=== PATIENT | female | born 1985 | race Caucasian/White ===

== ENCOUNTER 2016-09-10 16:32 | Emergency (ER) | payer MEDICAID ==
[~2016-09-10] VITALS: Ht 170.2 cm; Wt 95.0 kg
[~2016-09-10 16:32] MED LIST: BCP DAILY; HYDR-3533 PO
[2016-09-10 16:39] VITALS: BP 133/66; PULSE 65; RESP 20; TEMP 97.8; O2SAT 99
[2016-09-10] MEDS ORDERED: SODIUM CHLOR 0.9% 1000 ML INJ 1,000 ML IV SCH (16:46)
--- NOTE | 2016-09-10 16:53 | PD ---
HPI Chief Complaint: Abdominal Pain Time Seen by Provider: 16:42 Travel History International Travel<30 days: No Contact w/Intl Traveler<30days: No Traveled to known affect area: No History of Present Illness HPI PATIENT C/O NONRADIATING, RUQ AREA PAIN, SHARP, INTERMITTENT, 8/10, ASSOC WITH NAUSEA BUT NO VOMITING/D/FEVER AT THIS POINT......STATES HAS HAD PREVIOUS H/O PANCREATITIS FROM GALLSTONES, BUT PATIENT STATES STILL HAS HER GB. PFSH Past Medical History Cancer: No Cardiovascular Problems: No Diminished Hearing: No Endocrine: No Genitourinary: No Immune Disorder: No Musculoskeletal: No Neurologic: No Reproductive: No Respiratory: No ?: Not LMP: 08/2016 Past Surgical History Abdominal Surgery: No Cardiac Surgery: No Ear Surgery: No Endocrine Surgery: No Eye Surgery: No Genitourinary Surgery: No Gynecologic Surgery: No Oral Surgery: No Tonsillectomy: Yes Other Surgery: Yes Social History Alcohol Use: No Tobacco Use: Yes (4-5 cigs/day) Substance Use: No Allergies-Medications (Allergen,Severity, Reaction): Coded Allergies: No Known Allergies (Verified , 09/10/16) Reported Meds & Prescriptions Reported Meds & Active Scripts Active Zofran Odt (Ondansetron Odt) 4 Mg Tab 4 Mg SL Q6HR PRN Ultram (Tramadol HCl) 50 Mg Tab 50 Mg PO Q4H PRN Review of Systems Except as stated in HPI: all other systems reviewed are Neg Gastrointestinal: Positive: Nausea, Abdominal Pain Physical Exam Narrative GENERAL: SKIN: Warm and dry. HEAD: Atraumatic. Normocephalic. EYES: Pupils equal and round. No scleral icterus. No injection or drainage. ENT: No nasal bleeding or discharge. Mucous membranes pink and moist. NECK: Trachea midline. No JVD. CARDIOVASCULAR: Regular rate and rhythm. RESPIRATORY: No accessory muscle use. Clear to auscultation. Breath sounds equal bilaterally. GASTROINTESTINAL: Abdomen soft, MILD RUQ TTP, nondistended. MUSCULOSKELETAL: Extremities without clubbing, cyanosis, or edema. No obvious deformities. NEUROLOGICAL: Awake and alert. No obvious cranial nerve deficits. Motor grossly within normal limits. Five out of 5 muscle strength in the arms and legs. Normal speech. PSYCHIATRIC: Appropriate mood and affect; insight and judgment normal. Data Data Last Documented VS Vital Signs Date Time Temp Pulse Resp B/P Pulse Ox O2 Delivery O2 Flow Rate FiO2 09/10/16 17:24 57 16 118/69 96 09/10/16 16:39 97.8 Orders Complete Blood Count With Diff (09/10/16 16:46) Comprehensive Metabolic Panel (09/10/16 16:46) Lipase (09/10/16 16:46) Urinalysis - C+S If Indicated (09/10/16 16:46) Ct Abd/Pel W/O Iv Contrast (09/10/16 16:46) Iv Access Insert/Monitor (09/10/16 16:46) Ecg Monitoring (09/10/16 16:46) Oximetry (09/10/16 16:46) NPO (09/10/16 16:46) Hydromorphone Pf Inj (Dilaudid Pf Inj) (09/10/16 17:00) Ondansetron Inj (Zofran Inj) (09/10/16 17:00) Sodium Chlor 0.9% 1000 Ml Inj (Ns 1000 M (09/10/16 16:46) Sodium Chloride 0.9% Flush (Ns Flush) (09/10/16 17:00) Ed Urine Pregnancytest Poc (09/10/16 16:46) Electrocardiogram (09/10/16 16:53) Labs Laboratory Tests Test 09/10/16 16:50 White Blood Count 8.8 TH/MM3 Red Blood Count 4.78 MIL/MM3 Hemoglobin 14.3 GM/DL Hematocrit 43.1 % Mean Corpuscular Volume 90.1 FL Mean Corpuscular Hemoglobin 29.9 PG Mean Corpuscular Hemoglobin 33.2 % Concent Red Cell Distribution Width 12.8 % Platelet Count 265 TH/MM3 Mean Platelet Volume 9.1 FL Neutrophils (%) (Auto) 56.8 % Lymphocytes (%) (Auto) 26.5 % Monocytes (%) (Auto) 13.2 % Eosinophils (%) (Auto) 2.8 % Basophils (%) (Auto) 0.7 % Neutrophils # (Auto) 5.0 TH/MM3 Lymphocytes # (Auto) 2.3 TH/MM3 Monocytes # (Auto) 1.2 TH/MM3 Eosinophils # (Auto) 0.2 TH/MM3 Basophils # (Auto) 0.1 TH/MM3 CBC Comment DIFF FINAL Differential Comment Urine Collection Type CLEAN CATCH Urine Color YELLOW Urine Turbidity CLEAR Urine pH 6.0 Urine Specific [place] 1.026 Urine Protein NEG mg/dL Urine Glucose (UA) NEG mg/dL Urine Ketones NEG mg/dL Urine Occult Blood NEG Urine Nitrite NEG Urine Bilirubin NEG Urine Leukocyte Esterase NEG Urine WBC 0-2 /hpf Urine Squamous Epithelial 6-8 /hpf Cells Urine Bacteria RARE /hpf Microscopic Urinalysis Comment CULT NOT INDICATED Urine Collection Time 16:50 Sodium Level 139 MEQ/L Potassium Level 4.0 MEQ/L Chloride Level 108 MEQ/L Carbon Dioxide Level 24.2 MEQ/L Anion Gap 7 MEQ/L Blood Urea Nitrogen 11 MG/DL Creatinine 0.70 MG/DL Estimat Glomerular Filtration 98 ML/MIN Rate Random Glucose 84 MG/DL Calcium Level 8.5 MG/DL Total Bilirubin 0.3 MG/DL Aspartate Amino Transf 12 U/L (AST/SGOT) Alanine Aminotransferase 19 U/L (ALT/SGPT) Alkaline Phosphatase 74 U/L Total Protein 6.8 GM/DL Albumin 3.4 GM/DL Lipase 178 U/L [facility] Medical Decision Making Medical Screen Exam Complete: Yes Emergency Medical Condition: Yes Medical Record Reviewed: Yes Interpretation(s) NSR 58, NORMAL INTERVALS, NO STEMI PATTERN Differential Diagnosis BILIARY COLIC V CHOLECYSTITIS V PANCREATITIS V GASTRITIS V ATYPICAL [place] Narrative Course PATIENT WAS EVALUATED AND REACHED PAIN FREE STATUS WHILE AWAITING CT RESULTS...NL LFT'S/PANCREAS ENZYMES, NL CBC AND NL ELECTROLYTES. PATIENT'S CT DID NOT SHOW ANY FREE AIR/SBO OR ILEUS. Diagnosis Primary Impression: BILIARY COLIC Patient Instructions: Biliary Colic (ED), General Instructions Scripts Ondansetron Odt (Zofran Odt)4 Mg Tab4 Mg SL Q6HR PRN (Nausea/Vomiting) #12 TAB Prov:Humza Mesa MD 09/10/16 Tramadol (Ultram)50 Mg Tab50 Mg PO Q4H PRN (PAIN) #28 TAB Prov:Humza Mesa MD 09/10/16 Disposition: 01 DISCHARGE HOME Condition: Stable (ERASED) Humza Mesa MD Sep 10, 2016 16:53
[2016-09-10] MEDS ORDERED: HYDROmorphone HCL PF 2 MG/ML VIAL IVS ONE (17:00)
[2016-09-10] MEDS ORDERED: SODIUM CHLORIDE 0.9% FLUSH 10 ML FLUSH IV FLUSH PRN (17:00)
[2016-09-10] MEDS ORDERED: ONDANSETRON HCL 4 MG/2 ML VIAL IVP ONE (17:00)
[2016-09-10 17:04] LABS: BLOOD, URINE NEG (NEG); GLUCOSE,URINE NEG (NEG); KETONE, URINE NEG (NEG); NITRITE,URINE NEG (NEG)
[2016-09-10 17:07] LABS: BASOPHIL # 0.1 TH/MM3 (0-0.2); BASOPHIL % 0.7 % (0.0-2.0); EOSINOPHIL # 0.2 TH/MM3 (0-0.4); EOSINOPHIL % 2.8 % (0.0-4.0); HEMATOCRIT 43.1 % (35.0-46.0); HEMO FLAGS DIFF FINAL; LYMPH % 26.5 % (9.0-44.0); LYMPHOCYTE # 2.3 TH/MM3 (1.0-4.8); MEAN CELL VOLUME 90.1 FL (80.0-100.0); MEAN CORPUSCULAR HEMOGLOBIN 29.9 PG (27.0-34.0); MEAN CORPUSCULAR HGB CONC 33.2 % (32.0-36.0); MONO % 13.2 % (0.0-8.0); NEUT % 56.8 % (16.0-70.0); PLATELET COUNT 265 TH/MM3 (150-450); RED BLOOD COUNT 4.78 MIL/MM3 (4.00-5.30); RED CELL DISTRIBUTION WIDTH 12.8 % (11.6-17.2); WHITE BLOOD COUNT 8.8 TH/MM3 (4.0-11.0)
[2016-09-10 17:13] LABS: METHOD OF COLLECTION CLEAN CATCH; URINE COLOR YELLOW (YELLW/STRAW)
[2016-09-10 17:14] LABS: BACTERIA, URINE RARE /hpf; COMMENT (UR) CULT NOT INDICATED; CULTURE IF INDICATED CULT NOT INDICATED; WBC, URINE 0-2 /hpf (0-5)
[2016-09-10 17:15] LABS: CHLORIDE 108 MEQ/L (98-107); SODIUM (NA) 139 MEQ/L (136-145)
[2016-09-10 17:19] LABS: ANION GAP 7 MEQ/L (5-15); BICARBONATE 24.2 MEQ/L (21.0-32.0)
[2016-09-10 17:20] LABS: BLOOD UREA NITROGEN 11 MG/DL (7-18)
[2016-09-10 17:22] LABS: ALT (GPT) 19 U/L (10-53); AST (GOT) 12 U/L (15-37); GLOMERULAR FILTRATION RATE 98 ML/MIN (>89)
[2016-09-10 17:24] VITALS: BP 118/69; PULSE 57; RESP 16; O2SAT 96
[2016-09-10 17:24] LABS: TOTAL BILIRUBIN ADULT 0.3 MG/DL (0.2-1.0)
[2016-09-10 17:25] LABS: ALKALINE PHOSPHATASE 74 U/L (45-117)
--- NOTE | 2016-09-10 17:29 | RADRPT ---
EXAM DATE/TIME: 09/10/2016 17:03 [facility] COMPARISON: CT ABDOMEN & PELVIS W/O CONTRAST, May 01, 2015, 18:19. INDICATIONS : Mid upper abdominal pain. Evaluate for renal calculi. ORAL CONTRAST: No oral contrast ingested. RADIATION DOSE: 23.91 CTDIvol (mGy) MEDICAL HISTORY : None SURGICAL HISTORY : None. ENCOUNTER: Initial ACUITY: 3 days PAIN SCALE: 8/10 LOCATION: upper quadrant abdomen TECHNIQUE: Volumetric scanning of the abdomen and pelvis was performed. Using automated exposure control and ad justment of the mA and/or kV according to patient size, radiation dose was kept as low as reasonably achievable to obtain optimal diagnostic quality images. DICOM format image data is available electro nically for review and comparison. FINDINGS: Right side: No evidence of stone or hydronephrosis. No calcifications along the course of the right ureter. Left side: No evidence of stone or hydronephrosis. No calcifications along the course of the left ureter. Bladder: Nondistended, smooth margins. No calcifications within the lumen. Other: Anteverted uterus. Trace amount of free fluid in the right pelvis.. No dilated loops of small or la rge bowel. No calcified gallstones. Visualized portions of the liver spleen and pancreas are CONCLUSION: 1. No renal stones or hydronephrosis. 2. Trace amount of free fluid in the right pelvis. Pb Vásquez MD on September 10, 2016 at 17:23 Board Certified Radiologist. This report was verified electronically.
[2016-09-10] MEDS ORDERED: ULTR50TA5 PO (17:32)
[2016-09-10] MEDS ORDERED: ZOFR4TAB3 SL (17:32)
[2016-09-10 19:08] VITALS: BP 101/65
--- NOTE | 2016-09-11 14:06 | EKG ---
Date Performed: 09/10/2016 Time Performed: 16:58:42 PTAGE: 31 years EKG: SINUS BRADYCARDIA WITH MARKED SINUS ARRHYTHMIA BORDERLINE ECG NO PREVIOUS TRACING DOCTOR: Marlon Marcelino Interpretating Date/Time 09/11/2016 14:04:33
== END 2016-09-10 19:11 | disposition home or self-care (01) ==
LOC: PHED 16:32
DX: K80.50 Calculus of bile duct without cholangitis or cholecystitis without obstruction (principal); F17.210 Nicotine dependence, cigarettes, uncomplicated
CPT/HCPCS: 74176; 80053; 81001; 83690; 84703; 85025; 93005; 96361; 96374; 96375; 99285; J1170; J2405; J7030

== ENCOUNTER 2017-01-27 14:33 | Emergency (ER) | payer MEDICAID ==
[~2017-01-27] VITALS: Ht 172.7 cm; Wt 97.0 kg
[~2017-01-27 14:33] MED LIST changes: -BCP DAILY; -HYDR-3533 PO; +TRAM50 PO; +ZOFR4TAB3 SL
[2017-01-27 14:49] VITALS: BP 137/67; PULSE 104; RESP 16; TEMP 98.2; O2SAT 100
[2017-01-27] MEDS ORDERED: SODIUM CHLOR 0.9% 1000 ML INJ 1,000 ML IV SCH (14:52)
[2017-01-27] MEDS ORDERED: ONDANSETRON HCL 4 MG/2 ML VIAL IVP ONE (15:00)
[2017-01-27] MEDS ORDERED: SODIUM CHLORIDE 0.9% FLUSH 10 ML FLUSH IV FLUSH PRN (15:00)
--- NOTE | 2017-01-27 15:18 | PD ---
HPI Chief Complaint: GI Complaint Time Seen by Provider: 15:07 Travel History International Travel<30 days: No Contact w/Intl Traveler<30days: No Traveled to known affect area: No History of Present Illness HPI 31-year-old female patient with history of pancreatitis, biliary colic, presents to the ER today because of a week and a half history of upper abdominal pains which she currently states is a 6 out of 10, nausea, vomiting, started getting worse after she had some alcohol with her friend last week. She denies any fevers or any other issues. She does notice that symptoms seems to worsen she eats something or drink something acidic. Modifying Factors: Worse with some food intake Associated Signs & Symptoms: Nausea, vomiting, upper abdominal pain Risk Factors: Gallbladder issues, pancreatitis PFSH Past Medical History Cancer: No Cardiovascular Problems: No Diminished Hearing: No Endocrine: No Gastrointestinal Disorders: Yes (CHOLECYSTITIS) Genitourinary: No Hypertension: Yes (with ) Immune Disorder: No Musculoskeletal: No Neurologic: No Reproductive: No Respiratory: No Pancreatitis: Yes ?: Not LMP: 01/07/17 Past Surgical History Abdominal Surgery: No Cardiac Surgery: No Ear Surgery: No Endocrine Surgery: No Eye Surgery: No Genitourinary Surgery: No Gynecologic Surgery: No Oral Surgery: No Tonsillectomy: Yes Other Surgery: Yes Social History Alcohol Use: No Tobacco Use: Yes (<1PPD) Substance Use: No Allergies-Medications (Allergen,Severity, Reaction): Coded Allergies: No Known Allergies (Verified Adverse Reaction, Unknown, 01/27/17) Reported Meds & Prescriptions Reported Meds & Active Scripts Active No Active Prescriptions or Reported Medications Review of Systems Except as stated in HPI: all other systems reviewed are Neg Physical Exam Narrative GENERAL: Well-developed young female patient currently in mild distress. Awake and oriented 3. SKIN: Focused skin assessment warm/dry. HEAD: Atraumatic. Normocephalic. EYES: Pupils equal and round. No scleral icterus. No injection or drainage. ENT: No nasal bleeding or discharge. Mucous membranes pink and moist. NECK: Trachea midline. No JVD. CARDIOVASCULAR: Regular rate and rhythm. No murmur appreciated. RESPIRATORY: No accessory muscle use. Clear to auscultation. Breath sounds equal bilaterally. GASTROINTESTINAL: Abdomen soft, mild left upper quadrant tenderness without guarding or rebound, nondistended. Hepatic and splenic margins not palpable. MUSCULOSKELETAL: No obvious deformities. No clubbing. No cyanosis. No edema. NEUROLOGICAL: Awake and alert. No obvious cranial nerve deficits. Motor grossly within normal limits. Normal speech. PSYCHIATRIC: Appropriate mood and affect; insight and judgment normal. Data Data Last Documented VS Vital Signs Date Time Temp Pulse Resp B/P (MAP) Pulse Ox O2 Delivery O2 Flow Rate FiO2 01/27/17 15:52 64 16 105/66 (79) 99 Room Air 01/27/17 14:49 98.2 Orders Orders Complete Blood Count With Diff (01/27/17 14:52) Comprehensive Metabolic Panel (01/27/17 14:52) Lipase (01/27/17 14:52) Urinalysis - C+S If Indicated (01/27/17 14:52) Iv Access Insert/Monitor (01/27/17 14:52) Ecg Monitoring (01/27/17 14:52) Oximetry (01/27/17 14:52) Ondansetron Inj (Zofran Inj) (01/27/17 15:00) Sodium Chlor 0.9% 1000 Ml Inj (Ns 1000 M (01/27/17 14:52) Sodium Chloride 0.9% Flush (Ns Flush) (01/27/17 15:00) Ed Urine Pregnancytest Poc (01/27/17 14:52) Morphine Inj (Morphine Inj) (01/27/17 15:45) Ct Abd/Pel W Iv Contrast(Rout) (01/27/17 16:20) Iohexol 350 Inj (Omnipaque 350 Inj) (01/27/17 16:44) Ed Discharge Order (01/27/17 17:17) Labs Laboratory Tests Test 01/27/17 15:19 White Blood Count 12.4 TH/MM3 Red Blood Count 5.13 MIL/MM3 Hemoglobin 15.1 GM/DL Hematocrit 45.3 % Mean Corpuscular Volume 88.3 FL Mean Corpuscular Hemoglobin 29.4 PG Mean Corpuscular Hemoglobin Concent 33.3 % Red Cell Distribution Width 12.6 % Platelet Count 296 TH/MM3 Mean Platelet Volume 8.6 FL Neutrophils (%) (Auto) 80.9 % Lymphocytes (%) (Auto) 11.6 % Monocytes (%) (Auto) 5.0 % Eosinophils (%) (Auto) 2.0 % Basophils (%) (Auto) 0.5 % Neutrophils # (Auto) 10.1 TH/MM3 Lymphocytes # (Auto) 1.4 TH/MM3 Monocytes # (Auto) 0.6 TH/MM3 Eosinophils # (Auto) 0.2 TH/MM3 Basophils # (Auto) 0.1 TH/MM3 CBC Comment DIFF FINAL Differential Comment Urine Collection Type CLEAN CATCH Urine Color YELLOW Urine Turbidity SLIGHT Urine pH 7.0 Urine Specific [place] 1.024 Urine Protein NEG mg/dL Urine Glucose (UA) NEG mg/dL Urine Ketones NEG mg/dL Urine Occult Blood NEG Urine Nitrite NEG Urine Bilirubin NEG Urine Leukocyte Esterase NEG Urine RBC 0-3 /hpf Urine Squamous Epithelial Cells 6-8 /hpf Urine Amorphous Sediment FEW Microscopic Urinalysis Comment CULT NOT INDICATED Urine Collection Time 1519 Blood Urea Nitrogen 10 MG/DL Creatinine 0.72 MG/DL Random Glucose 84 MG/DL Total Protein 7.4 GM/DL Albumin 3.5 GM/DL Calcium Level 8.6 MG/DL Alkaline Phosphatase 73 U/L Aspartate Amino Transf (AST/SGOT) 15 U/L Alanine Aminotransferase (ALT/SGPT) 24 U/L Total Bilirubin 0.4 MG/DL Sodium Level 137 MEQ/L Potassium Level 3.8 MEQ/L Chloride Level 105 MEQ/L Carbon Dioxide Level 23.6 MEQ/L Anion Gap 8 MEQ/L Estimat Glomerular Filtration Rate 94 ML/MIN Lipase 191 U/L [facility] Medical Decision Making Medical Screen Exam Complete: Yes Emergency Medical Condition: Yes Medical Record Reviewed: Yes Interpretation(s) Laboratory Tests Test 01/27/17 15:19 White Blood Count 12.4 TH/MM3 (4.0-11.0) Neutrophils (%) (Auto) 80.9 % (16.0-70.0) Neutrophils # (Auto) 10.1 TH/MM3 (1.8-7.7) Urine Squamous Epithelial Cells 6-8 /hpf (0-5) Differential Diagnosis Nausea, vomiting, abdominal pains: Gastritis versus gastroenteritis versus pancreatitis versus dehydration versus metabolic issues versus biliary colic Narrative Course Lab work did not show any signs of significant metabolic issue, LFTs are unremarkable, and UA did not show any signs of UTI. CAT scan did not show any signs of acute intra-abdominal processes. At this point, my plan would be to release her with follow-up to primary care physician. Return for worsening in symptoms as needed. The plan has been discussed with her and she states understanding. Diagnosis Primary Impression: Abdominal pain Med/Other Pt SpecificInfo: Prescription(s) given Scripts Ondansetron Odt (Zofran Odt) 4 Mg Tab 4 MG SL Q6HR Y for Nausea/Vomiting, #7 TAB 0 Refills Prov: Terri Palomo MD 01/27/17 Ranitidine (Zantac) 150 Mg Tab 150 MG PO BID for Reduce Stomach Acid, #20 TAB 0 Refills Prov: Terri Palomo MD 01/27/17 Disposition: 01 DISCHARGE HOME Condition: Stable Terri Palomo MD Jan 27, 2017 15:18
[2017-01-27 15:36] LABS: AUTOMATED NEUTROPHIL # 10.1 TH/MM3 (1.8-7.7); BASOPHIL # 0.1 TH/MM3 (0-0.2); BASOPHIL % 0.5 % (0.0-2.0); EOSINOPHIL # 0.2 TH/MM3 (0-0.4); HEMATOCRIT 45.3 % (35.0-46.0); HEMOGLOBIN 15.1 GM/DL (11.6-15.3); LYMPH % 11.6 % (9.0-44.0); LYMPHOCYTE # 1.4 TH/MM3 (1.0-4.8); MEAN CELL VOLUME 88.3 FL (80.0-100.0); MEAN CORPUSCULAR HEMOGLOBIN 29.4 PG (27.0-34.0); MEAN CORPUSCULAR HGB CONC 33.3 % (32.0-36.0); MEAN PLATELET VOLUME 8.6 FL (7.0-11.0); MONOCYTE # 0.6 TH/MM3 (0-0.9); NEUT % 80.9 % (16.0-70.0); PLATELET COUNT 296 TH/MM3 (150-450); RED BLOOD COUNT 5.13 MIL/MM3 (4.00-5.30); RED CELL DISTRIBUTION WIDTH 12.6 % (11.6-17.2); WHITE BLOOD COUNT 12.4 TH/MM3 (4.0-11.0)
[2017-01-27 15:38] LABS: BILIRUBIN, URINE NEG (NEG); BLOOD, URINE NEG (NEG); GLUCOSE,URINE NEG (NEG); KETONE, URINE NEG (NEG); NITRITE,URINE NEG (NEG); URINE LEUKOCYTE ESTERASE NEG (NEG)
[2017-01-27 15:39] LABS: URINE COLOR YELLOW (YELLW/STRAW)
[2017-01-27] MEDS ORDERED: MORPHINE SULFATE 2 MG/ML INJ IV PUSH ONE (15:45)
[2017-01-27 15:52] VITALS: BP 105/66; PULSE 64; RESP 16; O2SAT 99
[2017-01-27 15:53] LABS: AMORPHOUS SEDIMENT, URINE FEW; RBC, URINE 0-3 /hpf (0-3)
[2017-01-27 15:56] LABS: CHLORIDE 105 MEQ/L (98-107); SODIUM (NA) 137 MEQ/L (136-145)
[2017-01-27 15:59] LABS: CALCIUM 8.6 MG/DL (8.5-10.1)
[2017-01-27 16:00] LABS: ALBUMIN 3.5 GM/DL (3.4-5.0); BICARBONATE 23.6 MEQ/L (21.0-32.0); BLOOD UREA NITROGEN 10 MG/DL (7-18); GLUCOSE,RANDOM 84 MG/DL (74-106); LIPASE 191 U/L (73-393)
[2017-01-27 16:03] LABS: ALT (GPT) 24 U/L (10-53); AST (GOT) 15 U/L (15-37); CREATININE 0.72 MG/DL (0.50-1.00); GLOMERULAR FILTRATION RATE 94 ML/MIN (>89)
[2017-01-27 16:04] LABS: TOTAL BILIRUBIN ADULT 0.4 MG/DL (0.2-1.0); TOTAL PROTEIN 7.4 GM/DL (6.4-8.2)
[2017-01-27 16:06] LABS: ALKALINE PHOSPHATASE 73 U/L (45-117)
[2017-01-27] MEDS ORDERED: IOHEXOL 350 MG/ML 10 ML VIAL (for RAD DIAG) IVCONTRAST ONE (16:44)
--- NOTE | 2017-01-27 16:58 | RADRPT ---
EXAM DATE/TIME: 01/27/2017 16:30 [facility] COMPARISON: No previous studies available for comparison. INDICATIONS : Abdominal pain, nausea, vomiting. IV CONTRAST: 90 cc Omnipaque 350 (iohexol) IV ORAL CONTRAST: No oral contrast ingested. RADIATION DOSE: 19.31 CTDIvol (mGy) MEDICAL HISTORY : None SURGICAL HISTORY : None. ENCOUNTER: Initial ACUITY: 1 week PAIN SCALE: 8/10 LOCATION: middle abdomen TECHNIQUE: Volumetric scanning of the abdomen and pelvis was performed. Using automated exposure control and ad justment of the mA and/or kV according to patient size, radiation dose was kept as low as reasonably achievable to obtain optimal diagnostic quality images. DICOM format image data is available electro nically for review and comparison. FINDINGS: LOWER LUNGS: The visualized lower lungs are clear. LIVER: Homogeneous density without lesion. There is no dilation of the biliary tree. No calcified gallston es. SPLEEN: Normal size without lesion. PANCREAS: Within normal limits. KIDNEYS: Normal in size and shape. There is no mass, stone or hydronephrosis. ADRENAL GLANDS: Within normal limits. VASCULAR: There is no aortic aneurysm. BOWEL/MESENTERY: The stomach, small bowel, and colon demonstrate no acute abnormality. There is no free intraperitone al air or fluid. ABDOMINAL WALL: Within normal limits. RETROPERITONEUM: There is no lymphadenopathy. BLADDER: No wall thickening or mass. REPRODUCTIVE: Within normal limits. INGUINAL: There is no lymphadenopathy or hernia. MUSCULOSKELETAL: Within normal limits for patient age. CONCLUSION: 1. No acute findings. Michael Powell MD on January 27, 2017 at 16:54 Board Certified Radiologist. This report was verified electronically.
[2017-01-27] MEDS ORDERED: ZOFR4TAB3 SL (17:20)
[2017-01-27] MEDS ORDERED: ZANT150T2 PO (17:20)
== END 2017-01-27 17:34 | disposition home or self-care (01) ==
LOC: PHED 14:33
DX: R10.9 Unspecified abdominal pain (principal); R11.2 Nausea with vomiting, unspecified; I10 Essential (primary) hypertension; Z72.0 Tobacco use
CPT/HCPCS: 74177; 80053; 81001; 83690; 84703; 85025; 96361; 96374; 96375; 99285; J2270; J2405; J7030; Q9967